=== PATIENT | female | born 1980 | race Caucasian/White ===

== ENCOUNTER 2017-11-24 16:34 | Emergency (ER) | payer OTHER ==
[2017-11-24 17:20] VITALS: BP 151/91
--- NOTE | 2017-11-24 17:39 | UC ---
Upper Extremity HPI - HPI Summary HPI Summary: aly in right upper arm and swelling in wrist - History of Current Complaint Chief Complaint: UCUpperExtremity Stated Complaint: RIGHT ARM PAIN Time Seen by Provider: 11/24/17 17:15 Hx Obtained From: Patient Hx Last Menstrual Period: 11/23/17 ?: No Onset/Duration: Gradual Onset Pain Intensity: 8 Pain Scale Used: 0-10 Numeric Location Of Pain: Is Discrete @ Character: Aching Aggravating Factor(s): Movement Alleviating Factor(s): Nothing Associated Signs And Symptoms: Positive: Swelling Related History: Dominant Hand Right - Allergies/Home Medications Allergies/Adverse Reactions: Allergies Allergy/AdvReac Type Severity Reaction Status Date / Time codeine AdvReac Vomiting Verified 11/24/17 17:13 Home Medications: Home Medications Adalimumab (NF) [Humira Pen (NF)] 40 mg SUBCUT Q14D 11/24/17 [History Confirmed 11/24/17] Ibuprofen TAB* [Motrin TAB* 800 MG] 800 mg PO Q6H PRN 11/24/17 [History Confirmed 11/24/17] PMH/Surg Hx/FS Hx/Imm Hx Previously Healthy: Yes - psoriatic arthritis - Surgical History Surgical History: Yes Surgery Procedure, Year, and Place: 2 C-SECTIONS. cyst removal from left wrist. T & A, TUBAL LIGATION. tennis elbow--right. carpal tunnel--right - Family History Known Family History: Positive: Hypertension - Social History Occupation: Employed Full-time Lives: With Family Alcohol Use: Occasionally Substance Use Type: None Smoking Status (MU): Former Smoker When Did the Patient Quit Smoking/Using Tobacco: 2009 - Immunization History Most Recent Influenza Vaccination: 2412-1532 Review of Systems Constitutional: Negative Skin: Negative Eyes: Negative ENT: Negative Respiratory: Negative Cardiovascular: Negative Gastrointestinal: Negative Genitourinary: Negative Motor: Negative Neurovascular: Negative Musculoskeletal: Arthralgia, Edema - right wrist, Myalgia - right upper arm Neurological: Negative Psychological: Negative Is Patient Immunocompromised?: No All Other Systems Reviewed And Are Negative: Yes Physical Exam Triage Information Reviewed: Yes Appearance: Well-Appearing, No Pain Distress, Well-Nourished Vital Signs: Initial Vital Signs Temp 98 F 11/24/17 17:15 Pulse 75 11/24/17 17:15 Resp 18 11/24/17 17:15 BP 151/91 11/24/17 17:15 Pulse Ox 99 11/24/17 17:15 Vital Signs Reviewed: Yes Eye Exam: Normal Eyes: Positive: Conjunctiva Clear ENT Exam: Normal ENT: Positive: Normal ENT inspection, Hearing grossly normal, Pharynx normal, TMs normal, Uvula midline. Negative: Nasal congestion, Trismus, Muffled voice, Hoarse voice, Sinus tenderness Dental Exam: Normal Neck exam: Normal Neck: Positive: Supple, Nontender Respiratory Exam: Normal Respiratory: Positive: Chest non-tender, Lungs clear, Normal breath sounds, No respiratory distress, No accessory muscle use Cardiovascular Exam: Normal Cardiovascular: Positive: RRR, No Murmur, Pulses Normal, Brisk Capillary Refill Musculoskeletal Exam: Other Musculoskeletal: Positive: Strength Intact, ROM Intact, Edema @ - right wrist Neurological Exam: Normal Neurological: Positive: Alert, Muscle Tone Normal Psychological Exam: Normal Skin Exam: Normal Upper Extremity Course/Dx - Course Course Of Treatment: d/c to go to [facility] for further assessment - Differential Dx/Diagnosis Provider Diagnoses: right arm pain with swelling Discharge - Sign-Out/Discharge Documenting (check all that apply): Discharge/Admit/Transfer - Discharge Plan Condition: Stable Disposition: HOME Discharge Disposition Comment: to [facility] ED Referrals: PURA Wall [Primary Care Provider] - Additional Instructions: Tara I do not have a good explanation for the pain and swelling in having her arm. Certainly one thing to think about if they could this be a vascular issue. We are suggesting you go to the [facility] for further assessment evaluation and care - Billing Disposition and Condition Condition: STABLE Disposition: HOME
== END 2017-11-24 17:46 | disposition home or self-care (01) ==
LOC: UCCORT 16:34
DX: M79.621 Pain in right upper arm (principal); M25.431 Effusion, right wrist; L40.50 Arthropathic psoriasis, unspecified; Z88.5 Allergy status to narcotic agent; Z87.891 Personal history of nicotine dependence
CPT/HCPCS: 99212; G0463